=== PATIENT | male | born 1995 | race Caucasian/White ===

== ENCOUNTER 2020-11-09 11:21 | Outpatient (NON) | payer OTHER, SELFPAY ==
[2020-11-09 23:30] LABS: SARS-CoV-2 RNA PCR Negative
== END 2020-11-09 11:22 ==
PROVIDERS: Visit Provider Student in an Organized Health Care Education/Training Program
DX: Z20.828 Contact with and (suspected) exposure to other viral communicable diseases (principal); R19.7 Diarrhea, unspecified; R09.81 Nasal congestion
CPT/HCPCS: 87635; C9803; U0003

== ENCOUNTER 2024-03-15 20:24 | Emergency (ER) | payer BC, SELFPAY ==
[2024-03-15] VITALS (8 sets, daily range): BP systolic 136–159; BP diastolic 90–106; PULSE 80–103; RESP 16–26; TEMP 35.9; O2SAT 97–98
--- NOTE | ~2024-03-15 | CT_ITS ---
EXAMINATION: CT abdomen pelvis w con DATE: 03/15/2024 23:53 INDICATION: Abdominal pain. Hematemesis. TECHNIQUE: Computed tomography (CT) of the abdomen and pelvis was performed with 100 CC Omnipaque 350 intravenous contrast. Automated exposure control and iterative reconstruction technique were employe d. Exam dose: 1031.53 mGy-cm total exam DLP. COMPARISON: None. FINDINGS: The lung bases are clear consolidation. Minimal discoid atelectasis or scarring at the left lung base. Normal heart size. No pericardial or pleural effusion. No hepatic, splenic, pancreatic or adrenal space-occupying mass lesion. The gallbladder appears unrem arkable. No bile duct or pancreatic duct dilatation. 1.6 cm right renal cyst. No urinary tract calculi or hydroureteronephrosis. There is moderate diffuse thickening of bladder wall which may be due to underdistention, less likely urinary tract infection. The prostate gland is unremarkable. Normal caliber of the abdominal aorta. No intraperitoneal or retroperitoneal or pelvic mass lesion or adenopathy or ascites. No bowel obstruction, bowel wall thickening, pneumatosis or intraperitoneal free air. Approximately 3 x 2.9 x 3.8 cm fat-containing umbilical hernia. Small fat-containing right inguinal hernia. No suspicious osteolytic or osteoblastic lesions. IMPRESSION: 1.6 cm right adrenal cyst Fat-containing umbilical hernia and small fat-containing right inguinal hernia Reviewed, dictated and finalized at [facility]. Reviewed, dictated and finalized at [facility].
[2024-03-15 20:39] LABS: Basophils Percent Auto 0.2 % (0.2-1.2); Eosinophils Percent Auto 0.1 % (0-4.4); Hematocrit 48.3 % (42.0-52.0); Hemoglobin 16.5 g/dL (14.0-18.0); Immature Granulocyte Absolute 0.05 K/mm3 (0.00-0.031); Immature Granulocyte Percent A 0.4 % (0-0.5); Lymphocytes Absolute Auto 2.03 K/mm3 (0.9-3.2); Lymphocytes Percent Auto 16.4 % (18.3-44.2); Mean Corpuscular HGB Conc 34.2 g/dl (32-36); Mean Corpuscular Hemoglobin 29.7 pg (26-34); Mean Platelet Volume 10.4 fl (7.4-10.4); Monocytes Absolute Auto 0.8 K/mm3 (0.1-0.6); Monocytes Percent Auto 6.4 % (2.6-8.5); Neutrophils Absolute Auto 9.5 K/mm3 (1.3-6.7); Neutrophils Percent Auto 76.5 % (45.5-73.1); Platelet Count Result 358 k/mm3 (150-375); Red Blood Count 5.55 M/mm3 (4.6-6.20); Red Cell Distribution Width 12.8 % (11.5-14.5); White Blood Count 12.4 K/mm3 (4.5-10.0)
[2024-03-15 20:54] LABS: Alanine Aminotransferase 64 U/L (6-50); Albumin Level 5.5 g/dL (3.5-5.1); Alkaline Phosphatase 92 U/L (38-126); Anion Gap 12 mmol/L (4-12); Aspartate Amino Transferase 55 U/L (17-59); Bilirubin,Total 1.6 mg/dL (0.2-1.3); Blood Urea Nitrogen 10 mg/dL (9-20); Calcium 10.2 mg/dL (8.4-10.2); Carbon Dioxide 23 mmol/L (22-30); Chloride 104 mmol/L (98-107); Estimated CRCL calculation 154 ml/min; Estimated Glomerular Filt Rate > 60; Glucose 118 mg/dL (65-110); Potassium 3.9 mmol/L (3.4-5.0); Sodium 139 mmol/L (137-145)
[2024-03-15 20:57] LABS: Partial Thromboplastin Time 32.4 Seconds (22.3-36.8); Prothrombin Time 13.1 Seconds (11.1-14.7)
[2024-03-15] MEDS: SODIUM CHLORIDE 0.9% IV 1,000 ML 999 ML IV CONT (22:17)
[2024-03-15] MEDS: ONDANSETRON INJ 4 MG/2 ML VIAL IV PUSH (22:18)
[2024-03-15] MEDS: PANTOPRAZOLE SODIUM IV 40 MG VIAL IV PUSH (22:18)
[2024-03-15 22:28] LABS: Lipase 33 U/L (23-300)
--- NOTE | 2024-03-15 23:04 | ED.GIBLEED ---
HPI - GI Bleed General Chief complaint: GI Bleed Stated complaint: vomiting blood Time Seen by Provider: 03/15/24 22:05 Source: patient Mode of arrival: ambulatory Limitations: no limitations History of Present Illness HPI Narrative: This is a 28 year old male that presents to the ER for 2 episodes of hematemesis today. Reports he had been drinking last night. This morning he woke up with nausea and vomiting. The more he started to vomit and the more he started retching he noted some blood in his vomit. Reports it happened again tonight which prompted him to be seen. Denies fevers. Related Data Allergies Allergy/AdvReac Type Severity Reaction Status Date / Time No Known Allergies Allergy Verified 03/15/24 20:32 Review of Systems Review of Systems: CONSTITUTIONAL: Denies fever GASTROINTESTINAL: Reports abdominal pain, nausea, vomiting GENITOURINARY: Denies dysuria All systems reviewed & are unremarkable except as noted in HPI and below PMFSH Past Medical History Medical History (Updated 03/16/24 @ 01:31 by Leni Mitchell PA-C) No active medical problems Social History Social History (Updated 03/15/24 @ 23:08 by Leni Mitchell PA-C) Smoking status: Current every day smoker Tobacco type: e-cigarettes/vaping Alcohol intake: current Substance use: current Substance use type: marijuana Exam Narrative: GENERAL: Well-appearing, well-nourished, and in no acute distress. HEAD: Normocephalic, atraumatic. EYES: EOMI. ENT: Nares clear, no rhinorrhea or epistaxis. Mucous membranes moist. Oropharynx without tonsillar hypertrophy exudate or other lesions. CHEST: Clear to auscultation. No respiratory distress. No wheezes rales or rhonchi HEART: Regular rate and rhythm. No murmur heard. Normal peripheral pulses. ABDOMEN: Soft, nontender, nondistended, normal active bowel sounds. EXTREMITIES: Normal range of motion. No edema. SKIN: Warm, dry, no rash. NEURO: No focal deficits. Alert and oriented x3. PSYCH: Normal mood and affect Course Course Emergency Course: Patient updated on his workup. Resting comfortably. No episodes of hematemesis in the ED Vital Signs Vital signs: Vital Signs Temperature 96.7 F L 03/15/24 20:29 Pulse Rate 80 03/15/24 20:29 Respiratory Rate 18 03/15/24 20:29 Blood Pressure 136/101 H 03/15/24 20:29 Pulse Oximetry 97 03/15/24 20:29 Oxygen Delivery Room Air 03/15/24 20:29 Temperature 96.7 F L 03/15/24 20:29 Pulse Rate 93 03/15/24 23:30 Respiratory Rate 26 H 03/15/24 23:15 Blood Pressure 142/90 H 03/15/24 22:31 Pulse Oximetry 98 03/15/24 23:15 Oxygen Delivery Room Air 03/15/24 20:29 MDM - GI Bleed MDM Narrative Medical decision making narrative: Patient reports the emergency department after having 2 episodes of hematemesis today. Reports he had been drinking alcohol. Had several episodes of nausea and vomiting this morning. Following that noted some hematemesis. He is afebrile and nontoxic appearing. His vitals are stable. CBC with mild leukocytosis 12.4. Metabolic panel with mild hyperbilirubinemia and ALT of 64. Lipase is normal. CT abdomen and pelvis is without acute findings. Shows hepatic steatosis and a fat containing umbilical hernia. Some wall thickening of the urinary bladder, patient does not have any urinary symptoms. Patient updated on his workup. Resting comfortably. No episodes of hematemesis in the ED. Will be continued on Protonix and instructed to have follow-up with Gastroenterology. He was given warnings to return to the ER Differential Diagnosis Differential diagnosis: Likely gastritis and Katie-Kulkarni syndrome Lab Data Attestation: I reviewed the patient's lab results. 03/15/24 20:33 03/15/24 20:33 Labs: Lab Results 03/15/24 Range/Units 20:33 WBC 12.4 H (4.5-10.0) K/mm3 RBC 5.55 (4.6-6.20) M/mm3 Hgb 16.5 (14.0-18.0) g/dL Hct 48.3 (42.0-52.0) %
== END 2024-03-16 01:59 | disposition home or self-care (01) ==
PROVIDERS: Emergency Medicine; Emergency Provider Physician Assistant; PCP Pediatrics
DX: K29.01 Acute gastritis with bleeding (principal); F17.290 Nicotine dependence, other tobacco product, uncomplicated; E27.8 Other specified disorders of adrenal gland; K42.9 Umbilical hernia without obstruction or gangrene; K40.90 Unilateral inguinal hernia, without obstruction or gangrene, not specified as recurrent
CPT/HCPCS: 36415; 74177; 80053; 83690; 85025; 85610; 85730; 86850; 86900; 86901; 96361; 96374; 96375; 99284; C9113; J2405; J7030; Q9967